=== PATIENT | female | born 1990 | race Two or more races ===

== ENCOUNTER 2020-10-27 11:06 | Emergency (ER) | payer SELFPAY ==
[~2020-10-27] VITALS: Ht 167.6 cm; Wt 90.7 kg
[2020-10-27 11:12] VITALS: BP 127/81
== END 2020-10-27 11:15 | disposition left against medical advice (07) ==
LOC: ER 11:06
DX: M25.532 Pain in left wrist (principal); R42 Dizziness and giddiness; Z53.21 Procedure and treatment not carried out due to patient leaving prior to being seen by health care provider

== ENCOUNTER 2020-10-27 13:52 | Emergency (ER) | payer MEDICAID, OTHER ==
[~2020-10-27] VITALS: Ht 167.6 cm; Wt 90.7 kg
[2020-10-27 15:54] VITALS: BP 117/85
== END 2020-10-27 17:53 | disposition home or self-care (01) ==
LOC: ER 13:52
DX: S00.83XA Contusion of other part of head, initial encounter (principal); Z88.2 Allergy status to sulfonamides; Y08.89XA Assault by other specified means, initial encounter; Y93.01 Activity, walking, marching and hiking; Y92.89 Other specified places as the place of occurrence of the external cause; Y99.8 Other external cause status
CPT/HCPCS: 70450